=== PATIENT | female | born 1945 | race Caucasian/White ===

== ENCOUNTER → 2021-09-07 | Outpatient (CLI) | payer MEDICARE, OTHER | LOC: M.MRI 08:00 | PROVIDERS: ATTEND Internal Medicine Hematology & Oncology | DX: C79.89 Secondary malignant neoplasm of other specified sites (principal); C65.9 Malignant neoplasm of unspecified renal pelvis; R41.89 Other symptoms and signs involving cognitive functions and awareness; G31.89 Other specified degenerative diseases of nervous system; M47.812 Spondylosis without myelopathy or radiculopathy, cervical region; R90.82 White matter disease, unspecified ==